=== PATIENT | male | born 1960 | race Asian ===

== ENCOUNTER 2017-09-09 14:44 | Emergency (ER) | payer OTHER ==
[~2017-09-09] VITALS: Ht 175.3 cm; Wt 74.8 kg
[2017-09-09 15:26] LABS: PLATELET COUNT 187 K/uL (142-355)
[2017-09-09 15:33] LABS: POTASSIUM 4.4 mmol/L (3.6-5.2)
[2017-09-09 16:09] VITALS: BP 131/83; TEMP 97.7
[2017-09-09] MEDS ORDERED: VITAMIN D-31000 UNIT OR (16:55)
[2017-09-09] MEDS ORDERED: ASPI81TA4 PO (16:55)
[2017-09-09] MEDS ORDERED: BENZ1TAB43 PO (16:57)
[2017-09-09] MEDS ORDERED: LAMOTRIGINE25 M1 PO (17:03)
[2017-09-09] MEDS ORDERED: ATEN25TA21 PO (17:04)
[2017-09-09] MEDS ORDERED: HALOPERIDOL20 MG PO (17:05)
[2017-09-09] MEDS ORDERED: HALO5TAB10 PO (17:05)
[2017-09-09] MEDS ORDERED: LEVO0.0529 PO (17:08)
[2017-09-09] MEDS ORDERED: OXYB5TAB56 PO (17:10)
[2017-09-09] MEDS ORDERED: PROZAC10 MG PO ×2 (17:11→17:16)
[2017-09-09] MEDS ORDERED: AMLODIPINE BESYLATE PO (17:12)
[2017-09-09] MEDS ORDERED: PEPCID20 MG PO (17:13)
[2017-09-09] MEDS ORDERED: RISPERDAL4 MG PO (17:14)
[2017-09-22] MEDS ORDERED: AMLODIPINE BESYLATE PO (21:33)
[2017-09-22] MEDS ORDERED: VITAMIN D-31000 UNIT OR (21:33)
[2017-09-22] MEDS ORDERED: LEVO0.0529 PO (21:38)
[2017-09-22] MEDS ORDERED: HALOPERIDOL20 MG PO (21:38)
[2017-09-22] MEDS ORDERED: HALO5TAB10 PO (21:38)
[2017-09-22] MEDS ORDERED: PROZAC10 MG PO (21:38)
[2017-09-22] MEDS ORDERED: RISPERDAL4 MG PO (21:38)
[2017-09-22] MEDS ORDERED: OXYB5TAB56 PO (21:38)
[2017-09-22] MEDS ORDERED: ATEN25TA21 PO (21:38)
[2017-09-22] MEDS ORDERED: BENZ1TAB43 PO (21:38)
[2017-09-22] MEDS ORDERED: LAMOTRIGINE25 M1 PO (21:38)
[2017-09-22] MEDS ORDERED: ASPI81TA4 PO (21:38)
== END 2017-09-09 16:20 | disposition other institution (70) ==
LOC: ED 14:44
DX: R46.89 Other symptoms and signs involving appearance and behavior (principal); F20.89 Other schizophrenia; Z04.6 Encounter for general psychiatric examination, requested by authority
CPT/HCPCS: 36415; 80053; 83735; 84100; 85027; 93005; 99285

== ENCOUNTER 2019-09-07 21:51 | Emergency (ER) | payer OTHER ==
[~2019-09-07] VITALS: Ht 198.1 cm; Wt 87.1 kg
[2019-09-07 21:51] VITALS: BP 194/103; TEMP 98.1
[~2019-09-07 21:51] MED LIST: AMLODIPINE BESYLATE PO; ASPI81TA4 PO; ATEN25TA21 PO; BENZ1TAB43 PO; BENZTROPINE0.5 MG PO; BISACODYL LAXAT10 MG RE; FLUOXETINE40 MG PO; HALO5TAB10 PO; HALOPERIDOL20 MG PO; LAMICTAL25 MG PO; LAMO100T PO; LAMOTRIGINE25 M1 PO; LEVO0.0529 PO; OLANZAPINE5 MG PO; OXYB5TAB56 PO; PEPCID20 MG PO; PROZAC10 MG PO; RISPERDAL4 MG PO; VITAMIN D-31000 UNIT OR
[2019-09-07 22:13] LABS: PLATELET COUNT 263 K/uL (142-355)
[2019-09-07 22:30] LABS: POTASSIUM 3.9 mmol/L (3.6-5.2)
[2019-09-08] MEDS ORDERED: TRAZ50TA36 PO (00:07)
[2019-09-08] MEDS ORDERED: PANTOPRAZOLE 40MG TA PO (00:08)
[2019-09-08] MEDS ORDERED: SOD CHLORIDE1 GM PO (00:09)
[2019-09-08] MEDS ORDERED: NATURAL ZINC50 MG PO (00:10)
[2019-09-08] MEDS ORDERED: BENZTROPINE0.5 MG PO (00:11)
[2019-09-08] MEDS ORDERED: CARB200T42 PO (00:13)
[2019-09-08] MEDS ORDERED: PROVERA10 MG PO (00:13)
[2019-09-08] MEDS ORDERED: OLANZAPINE5 M1 PO (00:15)
[2019-09-08] MEDS ORDERED: AMANTADINE100 MG PO (10:41)
[2019-09-08] MEDS ORDERED: HALO5INJ3 IM (10:43)
[2019-09-08] MEDS ORDERED: OLANZAPINE10 M2 PO (10:44)
[2019-09-08] MEDS ORDERED: TRILEPTAL300 MG PO (10:45)
[2019-09-08] MEDS ORDERED: PARO20TA3 PO (10:48)
[2019-09-08] MEDS ORDERED: PERPHENAZINE4 MG PO (10:50)
[2019-09-08] MEDS ORDERED: VITAMIN B-121000 MC2 PO (10:52)
== END 2019-09-07 23:15 | disposition still patient (30) ==
LOC: ED 21:51
PROVIDERS: General Practice
DX: F28 Other psychotic disorder not due to a substance or known physiological condition (principal); F20.89 Other schizophrenia; E07.89 Other specified disorders of thyroid; Z11.59 Encounter for screening for other viral diseases; Z04.6 Encounter for general psychiatric examination, requested by authority
CPT/HCPCS: 36415; 80053; 81000; 83735; 84443; 85027; 87635; 93005; 99283; U00003

== ENCOUNTER 2019-11-29 18:23 | Emergency (ER) | payer OTHER ==
[~2019-11-29] VITALS: Ht 175.3 cm; Wt 88.1 kg
[2019-11-29 18:23] VITALS: BP 180/109; TEMP 98.9
[~2019-11-29 18:23] MED LIST changes: +AMANTADINE100 MG PO; +CARB200T42 PO; +FLUP10TA3 PO; +HALO5INJ3 IM; +NATURAL ZINC50 MG PO; +OLANZAPINE10 M2 PO; +OLANZAPINE5 M1 PO; +OXCARBAZEPIN300 MG PO; +PANTOPRAZOLE 40MG TA PO; +PARO20TA3 PO; +PERPHENAZINE4 MG PO; +PROVERA10 MG PO; +SOD CHLORIDE1 GM PO; +TRAZ50TA36 PO; +TRILEPTAL300 MG PO; +VITAMIN B-121000 MC2 PO
[2019-11-29 19:15] LABS: POTASSIUM 4.2 mmol/L (3.6-5.2)
[2019-11-29 19:22] LABS: PLATELET COUNT 278 K/uL (142-355)
[2019-11-29] MEDS ORDERED: AMANTADINE100 MG PO (21:07)
[2019-11-29] MEDS ORDERED: ASPIRIN/ENTERIC81 MG PO (21:08)
[2019-11-29] MEDS ORDERED: DIPH25CA90 PO (21:08)
[2019-11-29] MEDS ORDERED: CARBAMAZEPIN200 M1 PO (21:09)
[2019-11-29] MEDS ORDERED: BENADRYL 50M50 MG/ML IM (21:11)
[2019-11-29] MEDS ORDERED: FLUPHENAZINE10 MG PO (21:13)
[2019-11-29] MEDS ORDERED: HALO5INJ3 IM (21:14)
[2019-11-29] MEDS ORDERED: HALO5TAB10 PO (21:15)
[2019-11-29] MEDS ORDERED: TIROSINT50 MCG PO (21:16)
[2019-11-29] MEDS ORDERED: MEDR10TA4 PO (21:17)
[2019-11-29] MEDS ORDERED: OLANZAPINE10 MG PO (21:17)
[2019-11-29] MEDS ORDERED: TRILEPTAL300 MG PO ×2 (21:18→21:21)
[2019-11-29] MEDS ORDERED: PANTOPRAZOLE 40MG TA PO (21:22)
[2019-11-29] MEDS ORDERED: PAXIL20 MG PO (21:23)
[2019-11-29] MEDS ORDERED: PERPHENAZINE4 MG PO (21:25)
[2019-11-29] MEDS ORDERED: TRAZ100T PO (21:26)
[2019-11-29] MEDS ORDERED: SODI1TAB PO (21:26)
[2019-11-29] MEDS ORDERED: TYLENOL325 MG PO (21:27)
[2019-11-29] MEDS ORDERED: VITAMIN B-121000 MCG PO (21:28)
== END 2019-11-29 20:08 | disposition other institution (70) ==
LOC: ED 18:23
PROVIDERS: Family Medicine
DX: F20.89 Other schizophrenia (principal); F03.91 Unspecified dementia, unspecified severity, with behavioral disturbance; I10 Essential (primary) hypertension; Z11.59 Encounter for screening for other viral diseases; Z04.6 Encounter for general psychiatric examination, requested by authority; F17.210 Nicotine dependence, cigarettes, uncomplicated
CPT/HCPCS: 36415; 80053; 81000; 85027; 87635; 93005; 99285; U0003